=== PATIENT | male | born 1940 | race Caucasian/White ===

== ENCOUNTER 2017-03-25 08:00 | Outpatient (RCR) | payer MEDICARE, BC ==
[2017-01-07 11:42] VITALS: BP 112/60
[2017-01-07 11:43] VITALS: BP 110/58
--- NOTE | 2017-01-07 12:05 | CARDIAC REHAB PLAN OF CARE ---
Physician: Marysol BAÑUELOS Patient is being seen: Dawson Lane Medical Diagnosis: CABG x 2 Date of Initial Evaluation: 01/07/17 SHORT TERM GOALS Short Term Goals Due Date: 02/07/17 Short Term Goals: 76 year old male phase II patient comes to cardiac rehab after a CABG x 2 procedure on 2016. Leading up to this event the patient didn't have any prior cardiac history and was starting to notice increased SOB and tiredness, during exertion and Dr. Gregg examined him and referred him to Dr. Ashley. Past medical history include Prostate CA treated with radiation 12 years ago. PSA levels are still reading zero. Patient has had left shoulder surgery, low back disk surgery, and right knee replacement, but will be able to follow the cardiac rehab protocol for exercise. Patient presents as alert and oriented with a room air SPO2 of 96% and the automatic buffer shows a NSR without ectopy and resting rates 68-72. During exercise on the recumbent bike, level 4, 4.1 MET's for 10 minutes, SPO2 values remained in the 90's on room air and the automatic buffer showed a NSR without ectopy and rates 90-95. Patient will follow cardiac rehab protocol for exercise and maintain a consistent 150 minutes each week of a moderate level of exercise. Patient will include weight resistance exercise at least twice a week. Patient will follow a heart healthy plan for meals. Short Term Goals Met: Short Term Goals Not Met Due To: [facility] GOALS Dog Track Kennel Manager Goal Due Date: 03/09/17 Dog Track Kennel Manager Goals: buttermaker goals for the patient are to maintain that consistency of cardio exercise each week and the consistency of heart healthy foods for meals. Patient will increase intensity and duration of exercise throughout the 36 visit phase II program. Dog Track Kennel Manager Goals Met: Senior Care Goals Not Met Due To: PATIENT'S GOALS Patient Goals Due Date: 02/07/17 Patient Goals: Patient goals are to return to previous activities with confidence of heart health. Patient is active in the outdoors, with hiking, hunting, fishing and would like to regain health to return to those activities. Patient Goals Met: Patient Goals Not Met Due To: Cardiac Rehabilitation Plan of Care Comment: Cardiac rehab staff will monitor, record, and evaluate vitals, ECG, and exercise results to provide the best plan of care for the patient throughout the 36 visit phase II program. CR staff will educate and motivate the patient during visits for rehab. HERMES
[2017-01-09 18:46] VITALS: BP 104/64
[2017-01-09 18:47] VITALS: BP 100/58
[2017-01-12 16:57] VITALS: BP 108/62
[2017-01-12 16:58] VITALS: BP 110/60
[2017-01-14 17:50] VITALS: BP_SYST 108; BP_SYST 118; BP_DIAS 60; BP_DIAS 68
[2017-01-16 13:20] VITALS: BP 116/56
[2017-01-16 13:21] VITALS: BP 110/58
[2017-01-19 12:56] VITALS: BP 130/60
[2017-01-19 12:57] VITALS: BP 128/60
[2017-01-21 12:57] VITALS: BP_SYST 128; BP_SYST 130; BP_DIAS 66; BP_DIAS 70
[2017-01-23 21:28] VITALS: BP 120/64
[2017-01-23 21:29] VITALS: BP 104/60
[2017-01-26 17:27] VITALS: BP_SYST 110; BP_SYST 117; BP_DIAS 58; BP_DIAS 62
[2017-01-28 17:55] VITALS: BP 110/60
[2017-01-28 17:56] VITALS: BP 118/62
[2017-01-30 12:51] VITALS: BP 130/70
[2017-01-30 12:52] VITALS: BP 118/58
[2017-02-02 13:01] VITALS: BP_SYST 110; BP_SYST 118; BP_DIAS 62; BP_DIAS 68
[2017-02-04 13:34] VITALS: BP 117/60
[2017-02-04 13:35] VITALS: BP 120/64
[2017-02-06 18:13] VITALS: BP 110/60
[2017-02-06 18:14] VITALS: BP 110/60
--- NOTE | 2017-02-06 18:28 | CARDIAC REHAB PLAN OF CARE ---
Physician: Marysol BAÑUELOS Patient is being seen: Dawson Lane Medical Diagnosis: CABG x 2 Date of Initial Evaluation: January 07, 2017 SHORT TERM GOALS Short Term Goals Due Date: 03/08/17 Short Term Goals: 76 year old male phase II patient comes to cardiac rehab after a CABG x 2 procedure on 2016. Leading up to this event the patient didn't have any prior cardiac history and was starting to notice increased SOB and tiredness, during exertion and Dr. Gregg examined him and referred him to Dr. Ashley. Past medical history include Protate CA treated with radiation 12 years ago. PSA levels are still reading zero. Patient has had left shoulder surgery, low back disk surgery, and right knee replacement, but will be able to follow the cardiac rehab protocol for exercise. Patient presents as alert and oriented with a room air SPO2 of 96% and the panel monitor shows a NSR without ectopy and resting rates 68-72. During exercise on the recumbent bike, level 4, 4.1 MET's for 10 minutes, SPO2 values remained in the 90's on room air and the panel monitor showed a NSR without ectopy and rates 90-95. Patient will follow cardiac rehab protocol for exercise and maintain a consistent 150 minutes each week of a moderate level of exercise. Patient will include weight resistance exercise at least twice a week. Patient will follow a heart healthy plan for meals. Short Term Goals Met: After 14 visits for cardiac rehab patient tolerates up to 50 minutes on the upright and recumbent bikes, also walks 12-15 laps on the track, followed by a 10 pound dumbbell upper body workout. During exercise SPO2 values are between 88-92% and the panel monitor shows a ST without ectopy and rates up to 122. Patient has made good progress increasing duration and intensity of exercise. Short Term Goals Not Met Due To: FOREIGN EXCHANGE POSITION CLERK GOALS Senior Care Goal Due Date: 04/08/17 Senior Care Goals: termite control servicer goals remain to be consistent with a moderate to high intensity exercise of 75-150 minutes each week. Add in HIIT training during cardio exercise, and remain consistent with heart healthy foods for meals. Humanities Instructor Goals Met: Senior Care Goals Not Met Due To: PATIENT'S GOALS Patient Goals Due Date: 03/08/17 Patient Goals: Patient goals remain to gain better heart health and overall health to be able to return to a previous active lifestyle. Patient Goals Met: Patient Goals Not Met Due To: Cardiac Rehabilitation Plan of Care Comment: Cardiac rehab staff will continue to monitor, record, and evaluate vitals, ECG, and exercise values to provide the best plan of care for the patient throughout the phase II program. CR staff will educate and motivate the patient during visits for rehab. HERMES
[2017-02-09 17:46] VITALS: BP_SYST 104; BP_SYST 118; BP_DIAS 58; BP_DIAS 65
[2017-02-11 17:15] VITALS: BP 112/62
[2017-02-11 17:17] VITALS: BP 128/70
[2017-02-13 12:59] VITALS: BP 120/60
[2017-02-13 13:00] VITALS: BP 116/62
[2017-02-16 12:53] VITALS: BP_SYST 110; BP_SYST 118; BP_DIAS 62; BP_DIAS 68
[2017-02-18 13:05] VITALS: BP 116/64
[2017-02-18 13:06] VITALS: BP 102/56
[2017-02-20 17:34] VITALS: BP 118/62
[2017-02-20 17:35] VITALS: BP 117/56
[2017-02-23 17:27] VITALS: BP 104/62
[2017-02-23 17:28] VITALS: BP 112/64
[2017-02-25 18:19] VITALS: BP 100/60
[2017-02-25 18:20] VITALS: BP 110/58
[2017-03-04 12:48] VITALS: BP_SYST 116; BP_DIAS 58; BP_DIAS 60
[2017-03-06 12:28] VITALS: BP 112/60
[2017-03-06 12:29] VITALS: BP 120/60
[2017-03-09 13:10] VITALS: BP 120/70
[2017-03-09 13:11] VITALS: BP 110/58
--- NOTE | 2017-03-09 18:15 | CARDIAC REHAB PLAN OF CARE ---
Physician: Taty BAÑUELOS Patient is being seen: Dawson Aguillony Medical Diagnosis: CABG x 2 Date of Initial Evaluation: 2016 SHORT TERM GOALS Short Term Goals Due Date: 04/09/17 Short Term Goals: 76 year old male phase II patient comes to cardiac rehab after a CABG x 2 proceedure on 2016. Leading up to this event the patient didn't have any prior cardiac history and was starting to notice increased SOB and tiredness, during exertion and Dr. Gregg examined him and referred him to Dr. Ashley. Past medical history include Protate CA treated with radiation 12 years ago. PSA levels are still reading zero. Patient has had left shoulder surgery, low back disk surgery, and right knee replacement, but will be able to follow the cardiac rehab protocol for exercise. Patient presents as alert and oriented with a room air SPO2 of 96% and the homeland security program specialist shows a NSR without ectopy and resting rates 68-72. During exercise on the recumbent bike, level 4, 4.1 MET's for 10 minutes, SPO2 values remained in the 90's on room air and the homeland security program specialist showed a NSR without ectopy and rates 90-95. Patient will follow cardiac rehab protocol for exercise and maintain a consistent 150 minutes each week of a moderate level of exercise. Patient will include weight resistance exercise at least twice a week. Patient will follow a heart healthy plan for meals. Short Term Goals Met: Patient has made 25 visits to cardiac rehab and is able to tolerate 20 minutes on the recumbent with HIIT levels up to 8.1 METs, and 25 minutes on the treadmill achieving 4.5 METs, followed by a 10-15 pound dumbbell upper body workout. During exercise SPO2 levels are 85-90% on room air, without complaint of SOB and maintains normal skin color. The homeland security program specialist shows a NSR-ST without ectopy and rates of 92-109. Short Term Goals Not Met Due To: [facility] GOALS Quality Assurance Calibrator Goal Due Date: 05/10/17 Quality Assurance Calibrator Goals: [facility] goals are to continue to maintain consistent cardio exercise of 150 minutes each week and include HIIT training along with weight resistance training at least twice a week. Patient will continue to eat heart healthy meals and maintain current weight. Detention Goals Met: Patient has done a nice job of consistency of exercise while also increasing duration and intensity of exercise. Patient has increased endurance, energy, and strength and has 11 left in the phase II program. Detention Goals Not Met Due To: PATIENT'S GOALS Patient Goals Due Date: 04/09/17 Patient Goals: Patient goals remain to improve cardiac and overall health with exercise and to be able to return to previous activities that include hunting and fishing. Patient Goals Met: Patient Goals Not Met Due To: Cardiac Rehabilitation Plan of Care Comment: Cardiac rehab staff will monitor, record, and evaluate vital, ECG, and exercise results to provide the best plan of care for the patient throughout the 36 visit phase II program. CR staff will motivate and educate the patient during visits for rehab. HERMES
[2017-03-11 13:19] VITALS: BP_SYST 108; BP_SYST 110; BP_DIAS 58; BP_DIAS 64
[2017-03-13 09:12] VITALS: BP 108/60
[2017-03-13 09:13] VITALS: BP 100/58
[2017-03-16 13:21] VITALS: BP 106/60
[2017-03-16 13:22] VITALS: BP 96/58
[2017-03-20 13:46] VITALS: BP 118/64
[2017-03-20 13:49] VITALS: BP 102/62
[2017-03-23 17:53] VITALS: BP 108/56
[2017-03-23 17:54] VITALS: BP 102/60
[~2017-03-25 08:00] MED LIST: ACET-1935 PO; DOCU-416 PO; HYDR-385 PO; IBU200 PO; IBUP400T13 PO; PANT20TA27 PO; PHEN200T32 PO; RABE20TA33 PO; TAMS0.4C76 PO
[2017-03-25 13:25] VITALS: BP_SYST 102; BP_SYST 108; BP_DIAS 56; BP_DIAS 58
== END 2017-04-07 ==
LOC: CARD 08:00
PROVIDERS: ATTEND Family Medicine
DX: I25.10 Atherosclerotic heart disease of native coronary artery without angina pectoris (principal); Z95.1 Presence of aortocoronary bypass graft; Z85.46 Personal history of malignant neoplasm of prostate; Z92.3 Personal history of irradiation; Z96.651 Presence of right artificial knee joint; Z98.890 Other specified postprocedural states
CPT/HCPCS: 93798

== ENCOUNTER 2017-04-17 08:00 | Outpatient (RCR) | payer MEDICARE, BC ==
[2017-04-08 17:33] VITALS: BP 112/58
[2017-04-08 17:34] VITALS: BP 104/52
[2017-04-13 13:39] VITALS: BP 118/60
[2017-04-13 13:40] VITALS: BP 115/60
[2017-04-15 13:06] VITALS: BP 118/60
[2017-04-15 14:18] VITALS: BP 115/56
[2017-04-17 17:51] VITALS: BP 102/60
[2017-04-17 17:52] VITALS: BP 120/70
== END 2017-04-17 18:00 | disposition home or self-care (01) ==
LOC: CARD 08:00
PROVIDERS: ATTEND Family Medicine
DX: I25.10 Atherosclerotic heart disease of native coronary artery without angina pectoris (principal); Z95.1 Presence of aortocoronary bypass graft; Z85.46 Personal history of malignant neoplasm of prostate; Z92.3 Personal history of irradiation; Z96.651 Presence of right artificial knee joint; Z98.890 Other specified postprocedural states
CPT/HCPCS: 93798

== ENCOUNTER 2017-05-07 11:01 | Emergency (ER) | payer MEDICARE, BC ==
[~2017-05-07] VITALS: Ht 149.9 cm; Wt 72.1 kg
--- NOTE | 2017-05-07 11:11 | ER Report ---
History and Physical Time Seen By MD: 11:11 Hx. of Stated Complaint: PT REPORTS PAIN AND BURNING IN CHEST WITH INSPIRATION; CABG SURGERY 5 MONTHS AGO, SOB HPI/ROS CHIEF COMPLAINT: Intermittent shortness of breath, dry cough HISTORY OF PRESENT ILLNESS: 76-year-old male patient presents to emergency room with complaint of intermittent shortness of breath, dry cough. Patient states this been going on for the past 2 weeks. He states that when he is exercising he 'll feel like he is having hard time breathing. He states that he will have a dry cough and then pain that seems to radiate up his chest into his neck. He denies having any fevers or chills. He states that he is not taking any medication for this. He states he saw his primary care provider approximately one week ago who felt that this was likely reflux and increased his PPI medication to 2 tablets daily. He states that that has not seemed to help. He states that he does have a dry cough. He states that he has often when he is exercising, however will also be when he is drinking a hot cup of coffee. He states that he is 5 months status post CABG. He states he did have his INR checked on Thursday and it was 1.88. They've increased his dose. REVIEW OF SYSTEMS: Respiratory: As noted above Cardiovascular: As noted above Gastrointestinal: No vomiting, no abdominal pain. Musculoskeletal: No back pain. Allergies: Coded Allergies: Sulfa (Sulfonamide Antibiotics) (Verified Allergy, Mild, RASH, 04/12/14) amiodarone (Verified Allergy, Mild, RASH, 05/07/17) celecoxib (Verified Allergy, Mild, RASH, 04/12/14) Home Meds Reported Medications Acetaminophen (TYLENOL) 325 Mg Tablet, 325 MG PO, TAB 05/07/17 Atorvastatin Calcium (LIPITOR) 40 Mg Tablet, 1 TAB PO QDAY, TAB 05/07/17 Warfarin Sodium (WARFARIN SODIUM) 5 Mg Tablet, 5 MG PO QDAY, TAB 05/07/17 Diltiazem Hcl (DILTIAZEM ER) 180 Mg Capsule.er, 180 MG PO 05/07/17 Metoprolol Tartrate (METOPROLOL TARTRATE) 25 Mg Tablet, 1 TAB PO BID, TAB 05/07/17 Aspirin (ASPIRIN) 81 Mg Tab.chew, 81 MG PO QDAY, TAB.CHEW 05/07/17 Pantoprazole Sodium (PANTOPRAZOLE SODIUM) 40 Mg Tablet.dr, 40 MG PO QDAY, TAB.SR 05/07/17 Docusate Sodium (COLACE) 100 Mg Capsule, 100 MG PO BID, #30 CAPSULE 0 Refills 04/13/14 Ibuprofen (IBUPROFEN) 400 Mg Tablet, 1 TAB PO NOON 04/12/14 Ibuprofen (IBUPROFEN) 400 Mg Tablet, 1 TAB PO QAM 04/12/14 Tamsulosin Hcl (Flomax) 0.4 Mg Cap.sr.24h, 0.4 MG PO DAILY 05/25/07 Discontinued Reported Medications Hydrocodone Bit/Acetaminophen (HYDROCODON-ACETAMINOPHEN 5-325) 1 Each Tablet, 1- 2 EACH PO Q6H Y for PAIN, #20 0 Refills TAKE 1-2 TABLETS BY MOUTH EVERY SIX HOURS NEEDED FOR PAIN 04/13/14 Phenazopyridine Hcl (PHENAZOPYRIDINE HCL) 200 Mg Tablet, 200 MG PO TID Y for SPASMS, #30 0 Refills 04/13/14 Pantoprazole Sodium (PANTOPRAZOLE SODIUM) 20 Mg Tablet.dr, 20 MG PO QDAY, TAB.SR TAKE 1 TABLET DAILY. 04/12/14 Past Medical/Surgical History Patient has a past medical history of irregular heartbeat, reflux, prostate cancer, back pain, hard of hearing. Patient has a surgical history of CABG, hernia repair, left shoulder surgery, lower back surgery, right knee surgery, basal cell cancer removed. Reviewed Nurses Notes: Yes Constitutional Vital Sign - Last 24 Hours 05/07/17 05/07/17 05/07/17 05/07/17 11:06 11:07 11:16 11:31 Temp 97.6 Pulse 74 74 ??? Resp 20 B/P (MAP) 146/73 146/73 (97) Pulse Ox 96 96 O2 Delivery Room Air 05/07/17 05/07/17 05/07/17 05/07/17 11:46 12:00 12:01 12:16 Pulse 71 67 68 B/P (MAP) 115/62 (79) Pulse Ox 96 96 05/07/17 05/07/17 12:30 12:31 Pulse 65 B/P (MAP) 116/80 (92) Pulse Ox 93 Physical Exam General Appearance: The patient is alert, has no immediate need for airway protection and no current signs of toxicity. ENT: Tympanic membranes are pearly-mcintosh, auditory canals are patent, mucous membranes are moist. Respiratory: Chest is non tender, lungs are clear to auscultation. Cardiac: regular rate and rhythm Gastrointestinal: Abdomen is soft and non tender, no masses, bowel sounds normal. Musculoskeletal: Neck: Neck is supple and non tender. Extremities have full range of motion and are non tender. Skin: No rashes or lesions. DIFFERENTIAL DIAGNOSIS: After history and physical exam differential diagnosis was considered for shortness of breath including but not limited to pulmonary infectious process, COPD, asthma, pulmonary embolus and congestive heart failure. Medical Decision Making Data Points Result Diagram: 05/07/17 1110 05/07/17 1110 Laboratory Hematology Test 05/07/17 11:10 05/07/17 11:33 Red Blood Count 4.18 M/uL (4.00-5.60) Mean Corpuscular Volume 97.9 fL (80.0-96.0) Mean Corpuscular Hemoglobin 33.2 pg (26.0-33.0) Mean Corpuscular Hemoglobin Concent 33.9 g/dL (32.0-36.0) Red Cell Distribution Width 14.7 % (11.5-14.5) Mean Platelet Volume 9.5 fL (7.2-11.1) Neutrophils (%) (Auto) 78.3 % (39.4-72.5) Lymphocytes (%) (Auto) 12.2 % (17.6-49.6) Monocytes (%) (Auto) 7.1 % (4.1-12.4) Eosinophils (%) (Auto) 1.9 % (0.4-6.7) Basophils (%) (Auto) 0.5 % (0.3-1.4) Nucleated RBC Relative Count (auto) 0.0 /100WBC Neutrophils # (Auto) 8.6 K/uL (2.0-7.4) Lymphocytes # (Auto) 1.3 K/uL (1.3-3.6) Monocytes # (Auto) 0.8 K/uL (0.3-1.0) Eosinophils # (Auto) 0.2 K/uL (0.0-0.5) Basophils # (Auto) 0.0 K/uL (0.0-0.1) Nucleated RBC Absolute Count (auto) 0.00 K/uL Prothrombin Time 22.0 seconds (12.0-14.4) Prothromb Time International Ratio 1.88 Activated Partial Thromboplast Time 32 seconds (23-35) Sodium Level 140 mmol/L (137-145) Potassium Level 4.1 mmol/L (3.5-5.0) Chloride Level 101 mmol/L (98-107) Carbon Dioxide Level 25 mmol/L (22-30) Blood Urea Nitrogen 17 mg/dl (9-21) Creatinine 1.20 mg/dl (0.66-1.25) Glomerular Filtration Rate Calc 58.6 Random Glucose 104 mg/dl (75-110) Calcium Level 9.2 mg/dl (8.4-10.2) Total Bilirubin 0.5 mg/dl (0.2-1.3) Aspartate Amino Transf (AST/SGOT) 36 U/L (0-35) Alanine Aminotransferase (ALT/SGPT) 36 U/L (0-56) Alkaline Phosphatase 94 U/L (0-126) Troponin I < 0.012 ng/ml B-Type Natriuretic Peptide 160 pg/ml (0-100) Total Protein 7.8 gm/dl (6.3-8.2) Albumin 4.2 g/dl (3.5-5.0) Urine Color Straw Urine Clarity Clear Urine pH 7.0 pH (4.8-9.5) Urine Specific [place] 1.006 Urine Protein Negative mg/dL (NEGATIVE) Urine Glucose (UA) Negative mg/dL (NEGATIVE) Urine Ketones Negative mg/dL (NEGATIVE) Urine Blood Small (NEGATIVE) Urine Nitrite Negative (NEGATIVE) Urine Bilirubin Negative (NEGATIVE) Urine Urobilinogen Negative mg/dL (0.2-1.9) Urine Leukocyte Esterase Negative (NEGATIVE) Urine RBC <1 /HPF (0-2/HPF) Urine WBC <1 /HPF (0-5/HPF) Urine Squamous Epithelial Cells None /LPF (</=FEW) Urine Bacteria Negative /HPF (NONE-FEW) Urine Mucus None /HPF (NONE-FEW) Chemistry Test 05/07/17 11:10 05/07/17 11:33 White Blood Count 11.0 k/uL (4.5-11.0) Red Blood Count 4.18 M/uL (4.00-5.60) Hemoglobin 13.9 g/dL (14.0-18.0) Hematocrit 40.9 % (42.0-52.0) Mean Corpuscular Volume 97.9 fL (80.0-96.0) Mean Corpuscular Hemoglobin 33.2 pg (26.0-33.0) Mean Corpuscular Hemoglobin Concent 33.9 g/dL (32.0-36.0) Red Cell Distribution Width 14.7 % (11.5-14.5) Platelet Count 233 K/uL (150-450) Mean Platelet Volume 9.5 fL (7.2-11.1) Neutrophils (%) (Auto) 78.3 % (39.4-72.5) Lymphocytes (%) (Auto) 12.2 % (17.6-49.6) Monocytes (%) (Auto) 7.1 % (4.1-12.4) Eosinophils (%) (Auto) 1.9 % (0.4-6.7) Basophils (%) (Auto) 0.5 % (0.3-1.4) Nucleated RBC Relative Count (auto) 0.0 /100WBC Neutrophils # (Auto) 8.6 K/uL (2.0-7.4) Lymphocytes # (Auto) 1.3 K/uL (1.3-3.6) Monocytes # (Auto) 0.8 K/uL (0.3-1.0) Eosinophils # (Auto) 0.2 K/uL (0.0-0.5) Basophils # (Auto) 0.0 K/uL (0.0-0.1) Nucleated RBC Absolute Count (auto) 0.00 K/uL Prothrombin Time 22.0 seconds (12.0-14.4) Prothromb Time International Ratio 1.88 Activated Partial Thromboplast Time 32 seconds (23-35) Glomerular Filtration Rate Calc 58.6 Calcium Level 9.2 mg/dl (8.4-10.2) Total Bilirubin 0.5 mg/dl (0.2-1.3) Aspartate Amino Transf (AST/SGOT) 36 U/L (0-35) Alanine Aminotransferase (ALT/SGPT) 36 U/L (0-56) Alkaline Phosphatase 94 U/L (0-126) Troponin I < 0.012 ng/ml B-Type Natriuretic Peptide 160 pg/ml (0-100) Total Protein 7.8 gm/dl (6.3-8.2) Albumin 4.2 g/dl (3.5-5.0) Urine Color Straw Urine Clarity Clear Urine pH 7.0 pH (4.8-9.5) Urine Specific [place] 1.006 Urine Protein Negative mg/dL (NEGATIVE) Urine Glucose (UA) Negative mg/dL (NEGATIVE) Urine Ketones Negative mg/dL (NEGATIVE) Urine Blood Small (NEGATIVE) Urine Nitrite Negative (NEGATIVE) Urine Bilirubin Negative (NEGATIVE) Urine Urobilinogen Negative mg/dL (0.2-1.9) Urine Leukocyte Esterase Negative (NEGATIVE) Urine RBC <1 /HPF (0-2/HPF) Urine WBC <1 /HPF (0-5/HPF) Urine Squamous Epithelial Cells None /LPF (</=FEW) Urine Bacteria Negative /HPF (NONE-FEW) Urine Mucus None /HPF (NONE-FEW) Coagulation Test 05/07/17 11:10 Prothrombin Time 22.0 seconds Prothromb Time International Ratio 1.88 Activated Partial Thromboplast Time 32 seconds Urinalysis Test 05/07/17 11:33 Urine Color Straw Urine Clarity Clear Urine pH 7.0 pH (4.8-9.5) Urine Specific [place] 1.006 Urine Protein Negative mg/dL (NEGATIVE) Urine Glucose (UA) Negative mg/dL (NEGATIVE) Urine Ketones Negative mg/dL (NEGATIVE) Urine Blood Small (NEGATIVE) Urine Nitrite Negative (NEGATIVE) Urine Bilirubin Negative (NEGATIVE) Urine Urobilinogen Negative mg/dL (0.2-1.9) Urine Leukocyte Esterase Negative (NEGATIVE) Urine RBC <1 /HPF (0-2/HPF) Urine WBC <1 /HPF (0-5/HPF) Urine Squamous Epithelial Cells None /LPF (</=FEW) Urine Bacteria Negative /HPF (NONE-FEW) Urine Mucus None /HPF (NONE-FEW) EKG/Imaging EKG Interpretation 12 lead EKG: Rhythm: normal sinus rhythm with a ventricular rate of 60 bpm [place]: normal QRS: normal ST segments: normal Imaging Exam type: CHEST PA AND LAT History: Shortness of breath and respiratory distress Comparison: July 10, 2014. Findings: There is been an increase in the coarse reticular nodular changes in the upper lung [place] which may represent an acute infectious/inflammatory process superimposed on a background scarring. Mild interstitial prominence throughout the lungs also slightly increased. There is no evidence of pleural effusions. Cardiac silhouette is normal in size. There are sternotomy sutures present. IMPRESSION: 1. Increase in the coarse reticular nodular changes in the upper lung [place] and an overall increase in subtle interstitial markings of the lungs when compared to the prior study. This could represent progressive pulmonary fibrosis although a superimposed acute infectious/inflammatory process superimposed on a background of scarring is included in the differential diagnosis Report Dictated By: Narda Masterson MD at 05/07/2017 11:53 AM Report E-Signed By: Narda Masterson MD at 05/07/2017 11:56 AM ED Course/Re-evaluation ED Course Patient was admitted and examined, history and physical were obtained. Differential diagnoses were considered. On examination lungs are clear, heart regular, abdomen soft nontender. Patient does have some tenderness to the left side of the chest, which he considers to be consistent with the pain he had from his surgery. A CBC, CMP, urinalysis, EKG, chest x-ray, BNP, troponin were done. Labs were fairly consistent with the last time that he had his lab work done. He does have slightly increased in his RDW, his creatinine was 1.2, AST was 36, troponin was negative and BNP was 160. Chest x-ray showed increasing courseness especially in the left upper lobe. EKG showed a normal sinus rhythm. I discussed the findings with patient. I don't believe this is related to the heart especially since his been going on for 2 weeks. I believe it is likely reflux. He has had his PPI increased recently, he has worsening cough and irritation when drinking hot coffee. I believe there is likely some inflammation in the esophagus. Was talking with the patient is they state that he had been told by Dr. Baltazar, ENT, that he did have inflammatory changes of the esophagus up by his vocal cords. And that Dr. Baltazar wanted him on PPIs for the rest of his life. We will go ahead and put him on Carafate that he is to crush up prior to taking. He is to follow-up with Dr. Mitchell next week. He is return to emergency room if condition worsens. Patient verbalized understanding and agreement with plan. Decision to Disposition Date: May 07, 2017 Decision to Disposition Time: 12:32 Depart Departure Latest Vital Signs Vital Signs Date Time Temp Pulse Resp B/P (MAP) Pulse Ox O2 Delivery O2 Flow Rate FiO2 05/07/17 12:31 65 93 05/07/17 12:30 116/80 (92) 05/07/17 11:16 18 05/07/17 11:06 97.6 Room Air Impression: Primary Impression: Chest pain Additional Impression: Esophagitis Condition: Improved Disposition: HOME OR SELF-CARE Referrals: TESFAYE MITCHELL MD (PCP) New Scripts Sucralfate (CARAFATE) 1 Gm Tablet 1 GM PO QID, #60 TAB Take before meals and at bedtime. Crush the tablet and mix with water before taking. Prov: HENRY LUBIN 05/07/17 Patient Instructions: Esophagitis (ED) Additional Instructions: Continue with the Aciphex 2 tabs a day. Crush the Carafate and mix with water prior to taking it. Follow up with Dr. Mitchell next week, call on Thursday to make an appointment. Continue with your exercise. Your BNP was slightly elevated, could mean nothing especially with your recent history of heart surgery but would like that to be continued to be monitored. Return to the ER if condition worsens. Get plenty of rest. Problem Qualifiers Primary Impression: Chest pain Chest pain type: other chest pain Qualified Codes: R07.89 - Other chest pain HENRY LUIBN May 07, 2017 11:11
[2017-05-07] MEDS ORDERED: PANT40TA65 PO (11:13)
[2017-05-07] MEDS ORDERED: ASPI81TA94 PO (11:14)
[2017-05-07] MEDS ORDERED: METO25TA93 PO (11:14)
[2017-05-07] MEDS ORDERED: DILT180C2 PO (11:15)
[2017-05-07] MEDS ORDERED: ATOR40TA24 PO (11:15)
[2017-05-07] MEDS ORDERED: WARF-18 PO (11:15)
[2017-05-07] MEDS ORDERED: ACET-1966 PO (11:16)
[2017-05-07 11:37] LABS: PLATELET COUNT, AUTOMATED 233 K/uL (150-450)
[2017-05-07 11:44] LABS: INR 1.88
--- NOTE | 2017-05-07 11:46 | EKG ---
FACILITY: [facility] PATIENT NAME: CHI ANDREWS : [id number] MR: [id number] V: [id number] EXAM DATE: ORDERING PHYSICIAN: HENRY LUBIN TECHNOLOGIST: ADALGISA Rousseau Reason : Blood Pressure : / mmHG Vent. Rate : 068 BPM Atrial Rate : 068 BPM P-R Int : 192 ms QRS Dur : 086 ms QT Int : 400 ms P-R-T Axes : 063 048 042 degrees QTc Int : 425 ms Normal sinus rhythm Normal ECG When compared with ECG of 12-APR-2014 10:42, No significant change was found Confirmed by TESFAYE BLACKMON ([id number]) on 05/09/2017 7:43:18 AM Referred By: Confirmed By:TESFAYE BLACKMON
--- NOTE | 2017-05-07 11:59 | RADIOLOGY IMAGING REPORT ---
FACILITY: [facility] PATIENT NAME: Hamilton Holm : 1940 MR: [id number] V: [id number] EXAM DATE: ORDERING PHYSICIAN: HENRY LUBIN TECHNOLOGIST: Location: [facility] Patient: Hamilton Holm : 1940 Visit/Account:[id number] Date of Sevice: 05/07/2017 Exam type: CHEST PA AND LAT History: Shortness of breath and respiratory distress Comparison: July 10, 2014. Findings: There is been an increase in the coarse reticular nodular changes in the upper lung [place] which may represent an acute infectious/inflammatory process superimposed on a background scarring. Mild inter stitial prominence throughout the lungs also slightly increased. There is no evidence of pleural eff usions. Cardiac silhouette is normal in size. There are sternotomy sutures present. IMPRESSION: 1. Increase in the coarse reticular nodular changes in the upper lung [place] and an overall increase in subtle interstitial markings of the lungs when compared to the prior study. This could represent progressive pulmonary fibrosis although a superimposed acute infectious/inflammatory process superim posed on a background of scarring is included in the differential diagnosis Report Dictated By: Narda Masterson MD at 05/07/2017 11:53 AM Report E-Signed By: Narda Masterson MD at 05/07/2017 11:56 AM WSN:[email or web address]
[2017-05-07] MEDS ORDERED: SUCR1TAB85 PO (12:41)
== END 2017-05-07 12:34 | disposition home or self-care (01) ==
LOC: ER 11:10
DX: K20.9 Esophagitis, unspecified (principal)
CPT/HCPCS: 71046; 81001; 82040; 82247; 82310; 82374; 82435; 82565; 82947; 83880; 84075; 84132; 84155; 84295; 84450; 84460; 84484; 84520; 85025; 85610; 85730; 93005; 99284

== ENCOUNTER → 2017-05-13 | Outpatient (CLI) | payer MEDICARE, BC ==
[~2017-05-13] MED LIST changes: +ACET-1966 PO; +ASPI81TA94 PO; +ATOR40TA24 PO; +DILT180C2 PO; +METO25TA93 PO; +PANT40TA65 PO; +SUCR1TAB85 PO; +WARF-18 PO
--- NOTE | 2017-05-14 20:27 | RADIOLOGY IMAGING REPORT ---
FACILITY: [facility] PATIENT NAME: CHI ANDREWS : [id number] MR: [id number] V: [id number] EXAM DATE: ORDERING PHYSICIAN: LALIT SHANE TECHNOLOGIST: Shagufta Taylor EXAMINATION:TWO-DIMENSIONAL ECHOCARDIOGRAPH REASON:CAD WITH DOUBLE BYPASS 2016 2D Measurements (normal values in centimeters) LV endLV endRV endVent.LV PostAorticLeftPercent DiastolicSystolicDiastolicSeptumWallRootAtriumShortening (3.5-5.7)(0.9-2.6)(0.6-1.1)(0.6-1.1)(2.0-3.7)(1.9-4.0)(25-35%) [id number] STROKE VOLUME: 46.7ml ESTIMATED EJECTION FRACTION:56% PARASTERNAL LONG AXIS: Overall left ventricular systolic function does appear to be normal. Right ventricle is mildly enlarged. The other chamber sizes are normal. Color examination of the valves reveals some aortic insufficiency somewhat eccentric more along the interventricular septum area. Mild calcification of the chordae tendonae of the valve leaflets. Valve does not appear to be stenotic. Color examination of the mitral valve reveals a trace to mild amount of mitral insufficiency present. Left ventricle is enlarged & appears to be somewhat decreased in function. The TAPSE is measured at 1.4. No specific wall motion abnormalities were noted but the myocardium of the right ventricle is not well seen. PARASTERNAL SHORT AXIS: Overall left ventricular function again appears to be within normal ranges. Chamber sizes appear to be normal. The aortic valve is trileaflet in configuration & has mild aortic sclerosis but no stenosis. The pulmonic valve is seen. There is a trace of mild amount of pulmonic insufficiency noted. There is a mild to moderate amount of tricuspid insufficiency noted. The tricuspid regurgitation Vmax was measured 2.77m/sec. APICAL FOUR AND TWO CHAMBER: Again normal left ventricular systolic function. Moderate amount of tricuspid insufficiency is noted. Aortic valve area & mitral valve area both measure within normal ranges at 3.4cm2 respectively. Trace to mild amount of mitral insufficiency is noted. No wall motion abnormalities are noted. There is some mild hypokinesis along the interventricular septum. Left atrial & right atrial volumes are measured within normal ranges at 26 & 29ml/m2. Two small jets of mitral insufficiency are noted. They appear to be centrally directed. SUBCOSTAL VIEW: No pericardial effusion was noted. No atrioseptal or ventriculoseptal defects were appreciated. Doppler examination of the mitral valve in diastole does reveal a normal pattern but there is reversal with Valsalva. There is also a decrease in medial & lateral E prime velocities. This suggests moderate decrease in diastolic function. IVC is normal in size. OVERALL IMPRESSION: 1. Normal left ventricular ejection fraction of 56%. No specific wall motion abnormalities were noted except for some mild hypokinesis along the interventricular septum. 2. Mild right ventricular enlargement &a mild decrease in right ventricular function as measured by the TAPSE measuring at 1.4%. 3. There is a Grade 2/4 decrease in diastolic function indicating moderate decrease in diastolic function. 4. A trileaflet aortic valve with mild aortic sclerosis but no stenosis. There is a trace of aortic insufficiency somewhat eccentric more along the side of the interventricular septum. 5. Mild amount of mitral insufficiency with no mitral stenosis. 6. There is a moderate amount of tricuspid insufficiency with estimated right ventricular systolic pressures of 34mm Hg which does include an estimated right atrial pressure of 3mm Hg which is within normal ranges. The right atrial volume is the upper range of normal in measurement. 7. A trace to mild amount of pulmonic insufficiency with no pulmonic stenosis as noted but the entire valve was not well seen. Dictated by: Adriana Jerome M.D. on 05/13/2017 at 19:57 Transcribed by: SABRA on 05/14/2017 at 11:42 Approved by: Adriana Jerome M.D. on 05/14/2017 at 20:25 [facility]
== END ==
LOC: US 01:30
PROVIDERS: ATTEND Internal Medicine
DX: Q21.0 Ventricular septal defect (principal); I51.7 Cardiomegaly; I50.30 Unspecified diastolic (congestive) heart failure; I35.8 Other nonrheumatic aortic valve disorders; I34.0 Nonrheumatic mitral (valve) insufficiency; I35.1 Nonrheumatic aortic (valve) insufficiency; I07.1 Rheumatic tricuspid insufficiency; I37.1 Nonrheumatic pulmonary valve insufficiency
CPT/HCPCS: 93306

== ENCOUNTER → 2017-08-03 | Outpatient (CLI) | payer MEDICARE, BC ==
[~2017-08-03] MED LIST changes: -WARF-18 PO; +WARF5TAB23 PO
== END ==
LOC: LAB 12:07
PROVIDERS: ATTEND Urology
DX: N39.0 Urinary tract infection, site not specified (principal)
CPT/HCPCS: 81001; 87088

== ENCOUNTER → 2018-06-08 | Outpatient (CLI) | payer MEDICARE, BC ==
[~2018-06-08] MED LIST changes: +APIX5TAB PO; +CHOL200021 PO; +TETR15DR9 OP
--- NOTE | 2018-06-08 17:56 | RADIOLOGY IMAGING REPORT ---
[place] [facility] [place] Holm : 1940 MR: [id number] V: [id number] EXAM DATE: ORDERING PHYSICIAN: INDIO ALLEN TECHNOLOGIST: Location: [facility] [place] Patient: Hamilton Holm : 1940 Visit/Account:[id number] Date of Sevice: 06/08/2018 CT CHEST W/O CONTRAST COMPARISON: None. HISTORY: Interstitial lung disease, shortness of breath, no smoking history. TECHNIQUE: Axial CT of the chest without intravenous contrast, "interstitial lung disease protocol", including 3 mm axial contiguous reconstructions, limited prone and limited expiratory sections. At th e time of this report there are no contiguous 1 mm axial sections. Coronal and sagittal reformats. One of the following dose optimization techniques was utilized in the performance of this exam: auto mated exposure control; adjustment of the mA and/or kV according to patient size; or use of iterative reconstruction technique. Specific details can be referenced in the facility's radiology CT exam op erational policy. CT CHEST FINDINGS: CARDIAC: Moderate cardiomegaly with moderate left coronary artery calcifications, previous sternotom y and clips in the anterior mediastinum. No pericardial effusion. MEDIASTINUM/KAITLIN: Prominent but not frankly enlarged mediastinal nodes. No definite hilar adenopathy , assessment limited on a noncontrast CT. VASCULATURE: Unremarkable. CHEST WALL: Unremarkable. No mass or axillary adenopathy. LUNGS/PLEURA: Diffuse septal thickening and peripheral reticular opacities with an upper lung zone p redominance. Small region of honeycombing in the right middle lobe. No bronchiectasis, consolidation or mass and no effusion. No significant groundglass opacities. No clearing opacities on prone scannin g. No significant air trapping on expiratory scanning. BONES: Sternotomy. Mild thoracic spine, moderate lower cervical spine degenerative change. No bony lesion or acute appearing fracture. LIMITED ABDOMEN: Unremarkable. OTHER: Negative. IMPRESSION: 1. Nonspecific interstitial lung disease/pulmonary fibrosis with a small region of honeycombing in t he right middle lobe. 2. Previous mediastinal surgery, probably sequela of prior CABG, with moderate LAD coronary artery c alcifications. Report Dictated By: Ishmael Gonzales at 06/08/2018 5:32 PM Report E-Signed By: Ishmael Gonzales at 06/08/2018 5:51 PM WSN:[id number]
== END ==
LOC: CT 13:28
PROVIDERS: ATTEND Internal Medicine
DX: R06.02 Shortness of breath (principal)
CPT/HCPCS: 71250

== ENCOUNTER → 2018-06-14 | Outpatient (CLI) | payer MEDICARE, BC | LOC: RESP 07:47 | PROVIDERS: ATTEND Internal Medicine | DX: R06.02 Shortness of breath (principal) | CPT/HCPCS: 94060; 94726; 94729 ==

== ENCOUNTER → 2018-08-20 | Emergency (ER) | payer MEDICARE, BC ==
--- NOTE | 2018-08-20 09:17 | ER Report ---
History and Physical Time Seen By MD: 09:07 Hx. of Stated Complaint: Pt. has not had a bowel movement in 5 days. Also having trouble urinating due to the pressure. Denies nausea and vomiting. Pt. had bronchoscopy on Thursday at in [place], and hasn't had a BM since HPI/ROS CHIEF COMPLAINT: Abdominal pain and constipation for 5 days. HISTORY OF PRESENT ILLNESS: Patient is an 78-year-old male with multiple medical problems who presents to the emergency department for evaluation of abdominal pain and distention that is located in the suprapubic area. ER nursing staff provided me with bladder scan which showed a distended urinary bladder approximately 1100 mL. A Gonzalez catheter was placed by the nurse prior to my evaluation. Approximately 1100 mL of clear yellow urine was obtained patient's symptoms dramatically improved. Patient recently had a bronchoscopy for chronic cough and infectious type symptoms and was told the results was nonspecific inflammation. He denies any fevers or chills. He is concerned in that he has not had a bowel movement for 5 days he states that since the bladder has been decompressed his abdominal pain is significantly reduced. He denies any nausea vomiting he denies any chest pain. Patient denies fevers or chills. He is not on any new medications or medications that would lead to urinary retention. Patient does follow with Dr. Persaud for prior history of prostate CA that was treated with radiation. REVIEW OF SYSTEMS: Constitutional: No fever, no chills. Eyes: No discharge. ENT: No sore throat. Cardiovascular: No chest pain, no palpitations. Respiratory: No cough, no shortness of breath. Gastrointestinal: Abdominal pain and distention, constipation Genitourinary: No hematuria. Musculoskeletal: No back pain. Skin: No rashes. Neurological: No headache. Allergies: Coded Allergies: Sulfa (Sulfonamide Antibiotics) (Verified Allergy, Mild, RASH, 08/20/18) amiodarone (Verified Allergy, Mild, RASH, 08/20/18) celecoxib (Verified Allergy, Mild, RASH, 08/20/18) Home Meds Active Scripts Sucralfate (CARAFATE) 1 Gm Tablet, 1 GM PO QID, #60 TAB Take before meals and at bedtime. Crush the tablet and mix with water before taking. Prov:HENRY LUBIN CLIENT TECHNICAL SPECIALIST 05/07/17 Reported Medications Tetrahydrozoline Hcl (EYE DROPS) 15 Ml Drops, 15 ML OP 05/27/18 Apixaban (ELIQUIS) 5 Mg Tablet, 5 MG PO 05/27/18 Cholecalciferol (Vitamin D3) (VITAMIN D) 2,000 Unit Capsule, 2000 UNIT PO, CAPSULE 05/27/18 Acetaminophen (TYLENOL) 325 Mg Tablet, 325 MG PO, TAB 05/07/17 Atorvastatin Calcium (LIPITOR) 40 Mg Tablet, 1 TAB PO QDAY, TAB 05/07/17 Metoprolol Tartrate (METOPROLOL TARTRATE) 25 Mg Tablet, 1 TAB PO BID, TAB 05/07/17 Aspirin (ASPIRIN) 81 Mg Tab.chew, 81 MG PO QDAY, TAB.CHEW 05/07/17 Pantoprazole Sodium (PANTOPRAZOLE SODIUM) 40 Mg Tablet.dr, 40 MG PO QDAY, TAB.SR 05/07/17 Tamsulosin Hcl (Flomax) 0.4 Mg Cap.sr.24h, 0.4 MG PO DAILY 05/25/07 Past Medical/Surgical History Patient has a past medical history of irregular heartbeat, reflux, prostate cancer, back pain, hard of hearing. Patient has a surgical history of CABG, hernia repair, left shoulder surgery, lower back surgery, right knee surgery, basal cell cancer removed. Exposure to Second Hand Smoke?: No Constitutional Vital Sign - Last 24 Hours 08/20/18 08/20/18 08/20/18 08/20/18 08:56 08:56 08:58 09:00 Temp 97.7 Pulse 77 76 Resp 16 B/P (MAP) 140/80 140/80 (100) 140/87 (104) Pulse Ox 93 93 08/20/18 08/20/18 08/20/18 08/20/18 09:03 09:08 09:13 09:18 Pulse 74 81 71 73 Pulse Ox 94 94 93 92 08/20/18 08/20/18 08/20/18 08/20/18 09:23 09:28 09:30 09:33 Pulse 69 74 68 B/P (MAP) 102/81 (88) Pulse Ox 91 92 92 08/20/18 08/20/18 08/20/18 08/20/18 09:38 09:43 09:53 09:58 Pulse 67 72 73 Pulse Ox 94 92 89 92 08/20/18 08/20/1819 10:00 10:03 10:08 Pulse 77 81 B/P (MAP) 132/113 (119) Pulse Ox 92 90 Physical Exam General Appearance: The patient is alert, has no immediate need for airway protection and no current signs of toxicity. Eyes: Pupils equal and round no injection. Respiratory: Chest is non tender, lungs are clear to auscultation. Cardiac: regular rate and rhythm Gastrointestinal: Abdomen is soft and non tender, no masses, bowel sounds normal. (The abdomen was examined after placement of Gonzalez catheter) Musculoskeletal: Neck: Neck is supple and non tender. Extremities have full range of motion and are non tender. Skin: No rashes or lesions. Medical Decision Making Data Points Laboratory Hematology Test 08/20/18 09:19 Urine Color Yellow Urine Clarity Clear Urine pH 7.0 pH (4.8-9.5) Urine Specific Grant 1.011 Urine Protein Negative mg/dL (NEGATIVE) Urine Glucose (UA) Negative mg/dL (NEGATIVE) Urine Ketones Negative mg/dL (NEGATIVE) Urine Blood Negative (NEGATIVE) Urine Nitrite Negative (NEGATIVE) Urine Bilirubin Negative (NEGATIVE) Urine Urobilinogen Negative mg/dL (0.2-1.9) Urine Leukocyte Esterase Negative (NEGATIVE) Urine RBC None /HPF (0-2/HPF) Urine WBC <1 /HPF (0-5/HPF) Urine Squamous Epithelial Cells None /LPF (NONE-FEW) Urine Bacteria Negative /HPF (NONE-FEW) Urine Hyaline Casts Few /LPF (NONE-FEW) Urine Mucus Few /HPF (NONE-FEW) Chemistry Test 08/20/18 09:19 Urine Color Yellow Urine Clarity Clear Urine pH 7.0 pH (4.8-9.5) Urine Specific Grant 1.011 Urine Protein Negative mg/dL (NEGATIVE) Urine Glucose (UA) Negative mg/dL (NEGATIVE) Urine Ketones Negative mg/dL (NEGATIVE) Urine Blood Negative (NEGATIVE) Urine Nitrite Negative (NEGATIVE) Urine Bilirubin Negative (NEGATIVE) Urine Urobilinogen Negative mg/dL (0.2-1.9) Urine Leukocyte Esterase Negative (NEGATIVE) Urine RBC None /HPF (0-2/HPF) Urine WBC <1 /HPF (0-5/HPF) Urine Squamous Epithelial Cells None /LPF (NONE-FEW) Urine Bacteria Negative /HPF (NONE-FEW) Urine Hyaline Casts Few /LPF (NONE-FEW) Urine Mucus Few /HPF (NONE-FEW) Urinalysis Test 08/20/18 09:19 Urine Color Yellow Urine Clarity Clear Urine pH 7.0 pH (4.8-9.5) Urine Specific Grant 1.011 Urine Protein Negative mg/dL (NEGATIVE) Urine Glucose (UA) Negative mg/dL (NEGATIVE) Urine Ketones Negative mg/dL (NEGATIVE) Urine Blood Negative (NEGATIVE) Urine Nitrite Negative (NEGATIVE) Urine Bilirubin Negative (NEGATIVE) Urine Urobilinogen Negative mg/dL (0.2-1.9) Urine Leukocyte Esterase Negative (NEGATIVE) Urine RBC None /HPF (0-2/HPF) Urine WBC <1 /HPF (0-5/HPF) Urine Squamous Epithelial Cells None /LPF (NONE-FEW) Urine Bacteria Negative /HPF (NONE-FEW) Urine Hyaline Casts Few /LPF (NONE-FEW) Urine Mucus Few /HPF (NONE-FEW) Microbiology Microbiology Date/Time Source Procedure Growth Status 08/20/18 09:19 Cath Urine Urine Culture - Preliminary NO GROWTH AFTER 1 DAY, REINCUBATED Resulted ED Course/Re-evaluation ED Course 08/20/2018 10:00:11 am patient abdominal pain is resolved status post bladder decompression. Acute abdominal series does show stillborn in the right hemicolon with gas in the splenic flexure and gas in the rectum along with some stool. Patient was given option to leave Gonzalez catheter in place over the weekend to allow for bladder rest and it was also discussed about possibility of using an enema. Patient prefers watchful waiting at this time. He prefers to have Gonzalez catheter removed and will take his [id number] MiraLAX which he prescribed E other day. Patient completely looks well and nontoxic vital signs are stable I do feel that this is a reasonable approach and patient understands that if these conservative measures do not work either with bowel movements or with urinary retention he will return to the emergency department for further evaluation. We also agreed that he should increase his Flomax over the weekend to twice per day once in the morning and once at nighttime. Decision to Disposition Date: August 20, 2018 Decision to Disposition Time: 10:01 Depart Departure Latest Vital Signs Vital Signs Date Time Temp Pulse Resp B/P (MAP) Pulse Ox O2 Delivery O2 Flow Rate FiO2 08/20/18 10:08 81 90 08/20/18 10:00 132/113 (119) 08/20/18 08:56 97.7 16 Impression: Primary Impression: Constipation Additional Impression: Urinary retention Condition: Improved Disposition: HOME OR SELF-CARE Referrals: TESFAYE MITCHELL MD (PCP) LINDY PERSAUD MD Call to schedule a follow up appointment in 7-14 days for reevaluation of urinary retention Patient Instructions: Constipation (DC), Urinary Retention in Men (ED) Additional Instructions: Increase Flomax 0.4 mg 2 twice per day, take one in the morning and then one at bedtime over the next 72 hours then resume 0.4 mg only at bedtime. Take MiraLAX as directed over the weekend. Return to the emergency department immediately if you develop signs or symptoms of acute urinary retention, fever or worsening abdominal pain. Problem Qualifiers Primary Impression: Constipation Constipation type: unspecified constipation type Qualified Codes: K59.00 - Constipation, unspecified YOANDY LINCOLN MD August 20, 2018 09:17
[2018-08-20 10:00] VITALS: BP 132/113
--- NOTE | 2018-08-20 10:21 | RADIOLOGY IMAGING REPORT ---
FACILITY: [facility] PATIENT NAME: Hamilton Holm : 1940 MR: [id number] V: [id number] EXAM DATE: ORDERING PHYSICIAN: YOANDY LINCOLN TECHNOLOGIST: Location: [facility] Patient: Hamilton Holm : 1940 Visit/Account:[id number] Date of Sevice: 08/20/2018 Exam type: ACUTE ABDOMEN SERIES 3 VIEW History: Constipation x5 days Comparison: CT chest June 08, 2018. Findings: There is extensive interstitial lung disease similar to the prior study. Also noted is biapical pleu ral thickening. The cardiac silhouette is normal in size. There are sternotomy sutures present. Supine and upright views the abdomen demonstrates a nonspecific bowel gas pattern. There is no gross evidence of organomegaly. Brachytherapy seeds project over the lower pelvis. A catheter projects o lalit the lower pelvis as well. IMPRESSION: 1. Extensive chronic interstitial lung disease Nonspecific bowel gas pattern Report Dictated By: Narda Masterson MD at 08/20/2018 10:15 AM Report E-Signed By: Narda Masterson MD at 08/20/2018 10:18 AM WSN:[email or web address]
== END ==
LOC: ER 09:20
DX: K59.00 Constipation, unspecified (principal); R33.9 Retention of urine, unspecified
CPT/HCPCS: 74022; 81001; 87088; 99283